=== PATIENT | male | born 1965 | race Caucasian/White ===

== ENCOUNTER → 2020-11-28 | Day surgery (SDC) | payer OTHER ==
[~2020-11-28] MED LIST: AMLODIPINE-BEN1 EACH PO; ATORVASTATIN CA10 MG PO; HCTZ12.5 MG PO; POTASSIUM CHLO10 ME2 PO
== END | disposition home or self-care (01) ==
LOC: FAS 07:03
DX: D12.3 Benign neoplasm of transverse colon (principal); D12.8 Benign neoplasm of rectum; D12.2 Benign neoplasm of ascending colon; F17.210 Nicotine dependence, cigarettes, uncomplicated; I10 Essential (primary) hypertension; E78.5 Hyperlipidemia, unspecified; I82.409 Acute embolism and thrombosis of unspecified deep veins of unspecified lower extremity; K21.9 Gastro-esophageal reflux disease without esophagitis; Z79.899 Other long term (current) drug therapy; Z80.0 Family history of malignant neoplasm of digestive organs; Z20.822 Contact with and (suspected) exposure to COVID-19; Z98.890 Other specified postprocedural states; Z12.11 Encounter for screening for malignant neoplasm of colon
CPT/HCPCS: 88305; J2250; J2704; J7120